=== PATIENT | male | born 1950 | race Caucasian/White ===

== ENCOUNTER 2018-03-03 18:16 | Emergency (ER) | payer MEDICARE ==
--- NOTE | 2018-03-03 18:36 | ED ---
Male Urogenital HPI - General Chief complaint: Urogenital Stated complaint: Urogenital Time Seen by Provider: 03/03/18 18:36 Source: patient Mode of arrival: ambulatory Limitations: no limitations - History of Present Illness Initial comments: This a 67-year-old male with past medical history of previous NV who presents today for chief complaint of penile and testicular swelling and itching. Patient states that 2 PM this afternoon he started noticing itching of his penis he went to the bathroom and noticed swelling he took a warm bath which she states helped decrease the swelling, when the swelling had not gone away by this evening he presented for evaluation. Patient denies any penile lesions, STD history, symptoms prior to this afternoon, testicular masses, testicular pain or fever, chills, night sweats, recent weight loss, inability to retract skin, abdominal pain, nausea, vomiting, history of hernia or any other associated symptoms. Upon arrival pt VS stable. - Related Data Previous Rx's Medication Instructions Recorded predniSONE 20 mg PO DAILY 4 Days #4 tab 03/03/18 Allergies Allergy/AdvReac Type Severity Reaction Status Date / Time No Known Allergies Allergy Verified 03/03/18 18:31 Review of Systems ROS Statement: Those systems with pertinent positive or pertinent negative responses have been documented in the HPI. ROS Other: All systems not noted in ROS Statement are negative. Constitutional: Denies: fever, chills, night sweats ENT: Denies: ear pain, throat pain Respiratory: Denies: cough, dyspnea, wheezes, hemoptysis, stridor Cardiovascular: Denies: chest pain, palpitations Endocrine: Denies: fatigue Gastrointestinal: Denies: abdominal pain, nausea, vomiting, diarrhea, constipation Genitourinary: Reports: other (penile swelling). Denies: testicular pain, testicular mass Skin: Denies: rash, lesions, change in color, change in hair/nails Neurological: Denies: headache, weakness, numbness, paresthesias, confusion Past Medical History Past Medical History: Myocardial Infarction ([place]) History of Any Multi-Drug Resistant Organisms: None Reported Past Surgical History: Heart Catheterization With Stent Past Psychological History: No Psychological Hx Reported Smoking Status: Never smoker Past Alcohol Use History: None Reported Past Drug Use History: None Reported General Exam - General Exam Comments Initial Comments: General: The patient is awake and alert, in no distress, and does not appear acutely ill. Eye: Pupils are equal, round and reactive to light, extra-ocular movements are intact. No nystagmus. There is normal conjunctiva bilaterally. No signs of icterus. Ears, nose, mouth and throat: There are moist mucous membranes and no oral lesions. Cardiovascular: There is a regular rate and rhythm. No murmur, rub or gallop is appreciated. Respiratory: Lungs are clear to auscultation, respirations are non-labored, breath sounds are equal. No wheezes, stridor, rales, or rhonchi. Gastrointestinal: Soft, non-distended, non-tender abdomen without masses or organomegaly noted. There is no rebound or guarding present. Musculoskeletal: Normal ROM, no tenderness. Strength 5/5. Sensation intact. Radial pulses equal bilaterally 2+. Neurological: A&O x 3. CN II-XII intact, There are no obvious motor or sensory deficits. Coordination appears grossly intact. Speech is normal. Skin: Skin is warm and dry and no rashes or lesions are noted. Psychiatric: Cooperative, appropriate mood & affect, normal judgment. See Penile exam below Limitations: no limitations exam: Present: scrotal swelling. Absent: testicular tenderness, urethral discharge, vertical testicular lie, circumcision Expanded Male exam: Present: penile swelling, other (no noted testicular tenderness, testicular mass, inguinal hernia, or inguinal lymphadenopathy). Absent: phimosis, paraphimosis, lesions, induration, erythema, perineal induration, balanitis, priapism exam: Testicular Swelling: Left, Right, Cremasteric Reflex Present: Left, Right Course Vital Signs 03/03/18 03/03/18 18:27 19:50 Temperature 98.2 F 97.9 F Pulse Rate 73 70 Respiratory 18 16 Rate Blood Pressure 138/87 135/80 O2 Sat by Pulse 100 100 Oximetry Medical Decision Making - Medical Decision Making Pt evaluated by myself and Dr. Alicia, with [id number]. PE revealed penile swelling circumferentially and testicular swelling there is no noted erythema, lesions, discharge, smegma or penile irritation. No signs concerning for bacterial infection, testicular torsion, STD. No scrotal mass present no epididymal tenderness or erythema. The PE findings are more consistent with an allergic reaction. Pt denies any new exposures/detergents, but states he could have been bitten. Given hx that swelling has been decreasing throughout the evening I feel this is consistent with ddx of allergic reaction. Dr. Alicia evaluated the pt and stated that he feels this is an allergic reaction. Pt was given 50mg benadryl and prednisone with outside rx for 20mg prednisone x4 days with PCP and urology f/u. Return parameters discussed. Patient agreed plan patient is discharged in stable condition. Patient not questions. Disposition Clinical Impression: Allergic reaction, Swelling of penis Disposition: HOME SELF-CARE Condition: Good Instructions: General Allergic Reaction (ED) Additional Instructions: Please use medication as discussed. Please follow-up with family doctor or urology in the next 2 days of symptoms have not improved. Please return to emergency room if the symptoms increase or worsen or for any other concerns. Prescriptions: predniSONE 20 mg PO DAILY 4 Days #4 tab Is patient prescribed a controlled substance at d/c from ED?: No Referrals: Conrad Shore MD [Primary Care Provider] - 1-2 days Donald Gibson MD [STAFF PHYSICIAN] - 1-2 days Time of Disposition: 19:36
[2018-03-03] MEDS ORDERED: diphenhydrAMINE 50 MG CAP PO STA (19:25)
[2018-03-03] MEDS ORDERED: predniSONE 20 MG TAB PO STA (19:28)
[2018-03-03 19:51] VITALS: BP 135/80; PULSE 70; RESP 16; TEMP 97.9
== END 2018-03-03 19:51 | disposition home or self-care (01) ==
LOC: EC 18:16
DX: T78.40XA Allergy, unspecified, initial encounter (principal); I25.2 Old myocardial infarction; Z95.5 Presence of coronary angioplasty implant and graft
CPT/HCPCS: 99283; J7512

== ENCOUNTER 2020-08-23 10:12 | Emergency (ER) | payer MEDICARE ==
[2020-08-23 11:29] VITALS: BP 121/73; PULSE 75; TEMP 98.8
--- NOTE | 2020-08-23 11:38 | ED ---
SOB HPI - General Chief Complaint: Shortness of Breath Stated Complaint: Fatigue, SOB Source: patient, RN notes reviewed Mode of arrival: ambulatory Limitations: no limitations - History of Present Illness Initial Comments: Patient is a 69-year-old male that recently tested positive for [facility] this last , he's been having symptoms since Sunday. He does have shortness of breath with an intermittent cough that is dry and nonproductive. Daughter notes labs he had a low white count, ketones in urine but nothing alarming. Patient was sitting in wheelchair in no apparent pain or distress. He noted that his cough was dry and nonproductive area and he was in no pain. He denied any chest pain headache nausea vomiting diarrhea constipation fever fatigue chills. - Related Data Home Medications Medication Instructions Recorded Confirmed Ascorbic Acid [Vitamin C] 1,000 mg PO DAILY 08/23/20 08/23/20 Cholecalciferol (Vitamin D3) 125 mcg PO DAILY 08/23/20 08/23/20 [Vitamin D3 (5000 Iu)] Zinc 50 mg PO DAILY 08/23/20 08/23/20 Allergies Allergy/AdvReac Type Severity Reaction Status Date / Time No Known Allergies Allergy Verified 08/23/20 12:28 Review of Systems ROS Statement: Those systems with pertinent positive or pertinent negative responses have been documented in the HPI. ROS Other: All systems not noted in ROS Statement are negative. Past Medical History Past Medical History: Myocardial Infarction ([place]) History of Any Multi-Drug Resistant Organisms: None Reported Past Surgical History: Heart Catheterization With Stent Past Psychological History: No Psychological Hx Reported Smoking Status: Never smoker Past Alcohol Use History: None Reported Past Drug Use History: None Reported General Exam Limitations: no limitations General appearance: alert, in no apparent distress Head exam: Present: atraumatic, normocephalic, normal inspection Eye exam: Present: normal appearance, PERRL, EOMI. Absent: scleral icterus, conjunctival injection, periorbital swelling ENT exam: Present: normal exam, mucous membranes moist Neck exam: Present: normal inspection. Absent: tenderness, meningismus, lymphadenopathy Respiratory exam: Present: normal lung sounds bilaterally. Absent: respiratory distress, wheezes, rales, rhonchi, stridor Cardiovascular Exam: Present: regular rate, normal rhythm, normal heart sounds. Absent: systolic murmur, diastolic murmur, rubs, gallop, clicks GI/Abdominal exam: Present: soft, normal bowel sounds. Absent: distended, tenderness, guarding, rebound, rigid Extremities exam: Present: normal inspection, full ROM, normal capillary refill. Absent: tenderness, pedal edema, joint swelling, calf tenderness Neurological exam: Present: alert, oriented X3, CN II-XII intact Psychiatric exam: Present: normal affect, normal mood Skin exam: Present: warm, dry, intact, normal color. Absent: rash Course Vital Signs 08/23/20 11:26 Temperature 98.8 F Pulse Rate 75 Respiratory 18 Rate Blood Pressure 121/73 O2 Sat by Pulse 98 Oximetry Medical Decision Making - Medical Decision Making 69-year-old male who tested positive for Covid at [facility] on , presents immersed department with shortness of breath and intermittent cough. EKG, chest x-ray, rapid Covid test ordered. Chest x-ray negative Covid test positive. Patient did agree to do monoclonal antibody therapy understood the risks for specifics. Case discussed with Dr. Alicia, patient can discharge home.. - Lab Data Lab Results 08/23/20 Range/Units 11:32 Coronavirus (PCR) Detected A (Not Detectd) - EKG Data -: EKG Interpreted by Pr EKG shows normal: sinus rhythm Rate: normal EKG Comments: Ventricular rate 67 bpm, W[place] interval 152 ms, QRS duration 90 ms, QT/QTc 404/426 ms, PRT axes 44/-0.2/49. Normal sinus rhythm, possible left atrial enlargement, low voltage QRS, bor derline ECG. - Radiology Data Radiology results: report reviewed, image reviewed X-ray: No acute cardiopulmonary process. Disposition Clinical Impression: COVID-19 Disposition: HOME SELF-CARE Condition: Stable Instructions (If sedation given, give patient instructions): Coronavirus Disease 2019 (COVID-19) Additional Instructions: Please return to the Emergency Department if symptoms worsen or any other co ncerns. Follow-up with primary care in 3-5 days. Continue to rest and take [id number] anti-inflammatories for symptom control. Is patient prescribed a controlled substance at d/c from ED?: No Referrals: Conrad Shore MD [Primary Care Provider] - 1-2 days Time of Disposition: 13:57
--- NOTE | 2020-08-23 12:13 | XR ---
EXAMINATION TYPE: XR chest 2V DATE OF EXAM: 08/23/2020 COMPARISON: NONE HISTORY: Difficulty breathing, shortness of breath and fatigue TECHNIQUE: Frontal and lateral views of the chest are obtained. FINDINGS: There is no focal air space opacity, pleural effusion, or pneumothorax seen. The cardiac silhouette size is within normal limits. Aorta is dense. The osseous structures are intact. IMPRESSION: No acute cardiopulmonary process.
[2020-08-23] MEDS ORDERED: BAMLANIVIMAB 700 MG in SODIUM CHLORIDE 0.9% 50 ML IVPB ONE (13:15)
[2020-08-23] MEDS ORDERED: ACET/COD 300 MG/30 MG STARTER PACK 6 TAB BTL PO STA (13:50)
[2020-08-23 15:13] VITALS: RESP 20
== END 2020-08-23 15:14 | disposition home or self-care (01) ==
LOC: EC 10:12
DX: U07.1 COVID-19 (principal); I25.2 Old myocardial infarction
CPT/HCPCS: 93005; 87635; 71046; 99285; 96374; Q0239